=== PATIENT | female | born 1990 | race Caucasian/White ===

== ENCOUNTER 2018-04-12 17:24 | Emergency (ER) | payer OTHER ==
[2015-10-12 11:15] VITALS: Wt 70.3 kg
[~2018-04-12 17:24] MED LIST: CHL25 PO; DOCU-225 PO; GABA-549 PO; HYDR-4228 PO; HYDR25CA83 PO; MULT-1379 PO; OXYC-373 PO; QUET200T29 PO; SERT25TA87 PO; SLEEP; TRAM-420 PO
[2018-04-12 17:30] VITALS: BP 126/86
--- NOTE | 2018-04-12 17:30 | ER Report ---
History and Physical Time Seen By MD: 17:30 HPI/ROS CHIEF COMPLAINT: [facility] clearance HISTORY OF PRESENT ILLNESS: Pt states that she "turned herself into [facility]". Pt here in handcuffs and [facility] clothing. Pt brought in to ed for clearance since blew 230 alcohol level. Pt states that she drank just prior to coming. Pt denies any nausea or vomiting. Pt denies any abd pain. Pt denies headache. no recent illness. Pt states she has a long hx of struggling with alcohol. REVIEW OF SYSTEMS: Constitutional: No fever, no chills. Eyes: No discharge. ENT: No sore throat. Cardiovascular: No chest pain, no palpitations. Respiratory: No cough, no shortness of breath. Gastrointestinal: No abdominal pain, no vomiting. Genitourinary: No hematuria. Musculoskeletal: No back pain. Skin: No rashes. Neurological: No headache. Allergies: Coded Allergies: Penicillins (Verified Allergy, Unknown, not sure, 04/12/18) Home Meds Discontinued Reported Medications Sertraline Hcl (ZOLOFT) 25 Mg Tablet, 1 TAB PO QDAY, TAB 12/31/16 Quetiapine Fumarate (SEROQUEL) 200 Mg Tablet, 200 MG PO 12/31/16 Hydroxyzine Pamoate (VISTARIL) 25 Mg Capsule, 25 MG PO, CAPSULE 12/31/16 Past Medical/Surgical History Pmhx: alcoholism, hx of withdrawl seizure PShx: appy Reviewed Nurses Notes: Yes Old Medical Records Reviewed: Yes Hx Smoking: Yes Smoking Status: Current: Every Day Smoker Exposure to Second Hand Smoke?: Yes Hx Substance Use Disorder: No ( SMOKES METH) Hx Alcohol Use: Yes Constitutional Vital Sign - Last 24 Hours 04/12/18 17:30 Temp 98.5 Pulse 114 Resp 12 B/P (MAP) 126/86 Pulse Ox 93 O2 Delivery Room Air Physical Exam General Appearance: The patient is alert, has no immediate need for airway protection and no signs of toxicity. Eyes: Pupils equal and round no pallor or injection, EOMI ENT: no pharyngeal erythema or exudates, Mucous membranes are moist, TM are nl b/l Respiratory: There are no retractions, lungs are clear to auscultation. Cardiovascular: Regular rate and rhythm. pulses are equal and symmetrical Gastrointestinal: Abdomen is soft and non tender, no masses, bowel sounds normal, no guarding, no rigidity or rebound Neurological: Cranial nerves II-XII grossly intact, no sensory or motor loss Skin: Warm and dry, no rashes. Musculoskeletal: Neck is supple non tender, no vertebral tenderness Extremities are nontender, non swollen and have full range of motion. DIFFERENTIAL DIAGNOSIS: After history and physical exam differential diagnosis was considered for alcohol dependence Medical Decision Making ED Course/Re-evaluation ED Course Pt currently showing no signs of withdrawl. Pt did miss her period this month. P t not sure if she is but declined testing secondary to costs. chief security and safety officer in room state that they have tests in [facility] and it will cost $1 but pt can have the test performed there. Pt is agreeable to be tested in [facility]. Decision to Disposition Date: Apr 12, 2018 Decision to Disposition Time: 17:44 Depart Departure Latest Vital Signs Vital Signs Date Time Temp Pulse Resp B/P (MAP) Pulse Ox O2 Delivery O2 Flow Rate FiO2 04/12/18 17:30 98.5 114 12 126/86 93 Room Air Impression: Primary Impression: Alcohol intoxication Condition: Stable Disposition: [facility] TO HALF-WAY/CORRECTIONAL F Patient Instructions: Abuse of Alcohol (ED), GENERAL ER DISCHARGE INSTRUCTIONS Additional Instructions: Return for any concerns. Problem Qualifiers Primary Impression: Alcohol intoxication Complication of substance-induced condition: uncomplicated Qualified Codes: F10.920 - Alcohol use, unspecified with intoxication, uncomplicated RAKESH OCONNOR DO Apr 12, 2018 17:30
== END 2018-04-12 17:48 | disposition home or self-care (01) ==
LOC: ER 17:38
DX: F10.920 Alcohol use, unspecified with intoxication, uncomplicated (principal); Y90.7 Blood alcohol level of 200-239 mg/100 ml
CPT/HCPCS: 99281